=== PATIENT | male | born 1940 | race Native Hawaiian/Other Pacific Islander ===

== ENCOUNTER 2016-12-06 21:13 | Emergency (ER) | payer MEDICARE, MEDICAID ==
[2016-12-06 21:13] VITALS: PULSE 80
[2016-12-06 21:41] VITALS: BMI 26.4
[2016-12-06 21:46] VITALS: TEMP 98.3
[2016-12-06 23:21] LABS: BASO % 0.5 % (0.0-2.0); EOS # 0.1 K/uL (0.0-0.7); EOS % 1.2 % (0.0-4.0); HEMATOCRIT 35.1 % (35.0-51.0); LYMPH # 0.8 K/uL (1.0-4.3); LYMPH % 18.9 % (20.0-40.0); MEAN CELL VOLUME 86.6 fL (80.0-94.0); MEAN CORPUSCULAR HEMOGLOBIN 28.8 pg (27.0-31.0); MEAN CORPUSCULAR HGB CONC 33.3 g/dL (33.0-37.0); MEAN PLATELET VOLUME 9.4 fL (7.2-11.7); MONO # 0.2 K/uL (0.0-0.8); MONO % 4.1 % (0.0-10.0); RED CELL DISTRIBUTION WIDTH 15.1 % (11.5-14.5); WHITE BLOOD COUNT 4.4 K/uL (4.8-10.8)
[2016-12-06 23:25] LABS: CHLORIDE 103 mmol/L (98-107); INR 1.3; POTASSIUM 3.8 mmol/L (3.6-5.2); SODIUM 139 mmol/L (132-148)
[2016-12-06 23:27] LABS: ALB/GLOB RATIO 1.3 (1.0-2.1); AST/SGOT 23 U/L (17-59); BILIRUBIN,TOTAL 0.7 mg/dL (0.2-1.3); BLOOD UREA NITROGEN 17 mg/dL (9-20); CARBON DIOXIDE 24 mmol/L (22-30); CHOLESTEROL 95 mg/dL (0-199); GFR AFRICAN-AMERICAN > 60
[2016-12-06 23:28] LABS: ALKALINE PHOSPHATASE 67 U/L (38-126); ALT/SGPT 32 U/L (21-72); CALCIUM 8.6 mg/dl (8.6-10.4); GLUCOSE,RANDOM 100 mg/dL (75-110)
--- NOTE | 2016-12-06 23:45 | C.PDOC ---
Time Seen by Provider: 12/06/16 22:14 Chief Complaint (Nursing): High Blood Pressure Past Medical History Vital Signs: Last Vital Signs Temp 98.3 F 12/07/16 00:03 Pulse 74 12/07/16 00:03 Resp 16 12/07/16 00:03 BP 162/99 H 12/07/16 00:03 Pulse Ox 98 12/07/16 00:03 - Medical History PMH: Anemia, Arthritis, Atrial Fibrillation, Diabetes, Gastritis, HTN, Hypercholesterolemia, Hyperthyroidism Denies: Chronic Kidney Disease - [facility] Procedures EXCISION OF ESOPHAGUS, ENDO, DIAGN (08/11/16) EXCISION OF MIDDLE ESOPHAGUS, ENDO, DIAGN (11/06/15) EXCISION OF STOMACH, ENDO, DIAGN (11/06/15) EXCISION OF UPPER ESOPHAGUS, ENDO, DIAGN (11/06/15) OTHER ENDOSCOPY OF SM INTEST (12/14/14) Family History: States: Unknown Family Hx - Social History Hx Tobacco Use: No Hx Alcohol Use: No Hx Substance Use: No - Immunization History Hx Tetanus Toxoid Vaccination: No Hx Influenza Vaccination: Yes (2015) Hx Pneumococcal Vaccination: No ED Course And Treatment - Laboratory Results Result Diagrams: 12/06/16 23:14 12/06/16 23:14 O2 Sat by Pulse Oximetry: 100 Disposition - Disposition Referrals: Samia Elizabeth MD [Staff Provider] - Disposition: HOME/ ROUTINE Condition: GOOD Additional Instructions: ADD Vasotec 20 mg daily to his daily medication regimen (take in AM) Follow-up with Dr. Bedoya for BP check and Neuro referral Prescriptions: Enalapril Maleate [Vasotec] 20 mg PO DAILY #30 tab Instructions: Ischemic Stroke (DC), Hypertension (ED) - Clinical Impression Clinical Impression: CVA (cerebral vascular accident), Hypertension
--- NOTE | 2016-12-06 23:51 | C.PDOC ---
History Of Present Illness A 76 year old male was brought in by daughter after returning from the [facility] 2 days ago. Daughter reports patient had a CVA in the [facility] 1 month ago in the left middle cerebral territory which has made him aphasic with mild right sided facial drooping. Daughter wants Patient to be evaluated in the emergency room. Daughter denies any headaches, dizziness, numbness, weakness, fever, chills, nausea, vomiting, diarrhea, or any other complaints. Time Seen by Provider: 12/06/16 22:14 Chief Complaint (Nursing): High Blood Pressure History Per: Patient, Family (Daughter) History/Exam Limitations: no limitations Onset/Duration Of Symptoms: Other (1 month) Current Symptoms Are (Timing): Still Present Associated Symptoms: denies: Dizziness, Headache Severity: Mild Exacerbating Factor(s): Pos: None Recent travel outside of the [place]: Yes ([facility] 1 month ago.) Past Medical History Reviewed: Historical Data, Nursing Documentation, Vital Signs Vital Signs: Last Vital Signs Temp 98.3 F 12/07/16 00:03 Pulse 74 12/07/16 00:03 Resp 16 12/07/16 00:03 BP 162/99 H 12/07/16 00:03 Pulse Ox 98 12/07/16 00:03 - Medical History PMH: Anemia, Arthritis, Atrial Fibrillation, Diabetes, Gastritis, HTN, Hypercholesterolemia, Hyperthyroidism Denies: Chronic Kidney Disease - [facility] Procedures EXCISION OF ESOPHAGUS, ENDO, DIAGN (08/11/16) EXCISION OF MIDDLE ESOPHAGUS, ENDO, DIAGN (11/06/15) EXCISION OF STOMACH, ENDO, DIAGN (11/06/15) EXCISION OF UPPER ESOPHAGUS, ENDO, DIAGN (11/06/15) OTHER ENDOSCOPY OF SM INTEST (12/14/14) Family History: States: Unknown Family Hx - Social History Hx Tobacco Use: No Hx Alcohol Use: No Hx Substance Use: No - Immunization History Hx Tetanus Toxoid Vaccination: No Hx Influenza Vaccination: Yes (2015) Hx Pneumococcal Vaccination: No Review Of Systems Except As Marked, All Systems Reviewed And Found Negative. Constitutional: Negative for: Fever, Chills Gastrointestinal: Negative for: Nausea, Vomiting, Diarrhea Neurological: Positive for: Other (Mild right sided facial droop. CVA 1 month ago. Aphasic.). Negative for: Weakness, Numbness, Headache, Dizziness Physical Exam - Physical Exam Appears: Non-toxic Skin: Normal Color, Warm, Dry Head: Atraumatic, Normacephalic Eye(s): bilateral: Normal Inspection, PERRL, EOMI Oral Mucosa: Moist Neck: Normal ROM, Supple Cardiovascular: Other (A-fib. Rate 76.) Respiratory: Normal Breath Sounds, No Rales, No Rhonchi, No Wheezing Gastrointestinal/Abdominal: Soft, No Tenderness, No Guarding, No Rebound Extremity: Normal ROM, No Tenderness Neurological/Psych: Oriented x3, Normal Speech, Normal Cognition, Other (Mild right sided facial drooping. ) ED Course And Treatment - Laboratory Results Result Diagrams: 12/06/16 23:14 12/06/16 23:14 ECG: Interpreted By [place] ECG Rhythm: Atrial Fibrillation ECG Interpretation: No Changes From Prior, Abnormal Rate From EC O2 Sat by Pulse Oximetry: 100 Pulse Ox Interpretation: Normal - Radiology CXR: Interpreted by Me CXR Interpretation: Yes: No Acute Disease - CT Scan/US CT Head Other Rad Studies (CT/US): Read By Radiologist, Radiology Report Reviewed CT/US Interpretation: IMPRESSION: Findings consistent with chronic or subacute left MCA territory infarction. 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 On appropriate anticoagulation Head CT no new changes, sub-acute L MCA CVA Vasotec 20 mg PO started pt to f/u w Dr. Bedoya tomorrow and seek Neuro referral. Disposition Doctor Will See Patient In The: Office Counseled Patient/Family Regarding: Studies Performed, Diagnosis - Disposition Referrals: Samia Elizabeth MD [Staff Provider] - Disposition: HOME/ ROUTINE Disposition Time: 23:53 Condition: GOOD Additional Instructions: ADD Vasotec 20 mg daily to his daily medication regimen (take in AM) Follow-up with Dr. Bedoya for BP check and Neuro referral Prescriptions: Enalapril Maleate [Vasotec] 20 mg PO DAILY #30 tab Instructions: Ischemic Stroke (DC), Hypertension (ED) - Clinical Impression Clinical Impression: CVA (cerebral vascular accident), Hypertension - Scribe Statement The provider has reviewed the documentation as recorded by the Aleja Lainez Provider Scribe Attestation: All medical record entries made by the Scribe were at my direction and personally dictated by me. I have reviewed the chart and agree that the record accurately reflects my personal performance of the history, physical exam, medical decision making, and the department course for this patient. I have also personally directed, reviewed, and agree with the discharge instructions and disposition.
[2016-12-07 00:04] VITALS: BP 162/99; PULSE 74; RESP 16
[2016-12-07 00:50] VITALS: O2SAT 100
--- NOTE | 2016-12-07 09:20 | RAD ---
HISTORY: CVA COMPARISON: Chest x-ray performed 08/11/16 TECHNIQUE: Chest, one view. FINDINGS: LUNGS: Biapical scarring or atelectasis. Trace left pleural effusion. Left basilar atelectasis or infiltrate. No definite pneumothorax. Please note that chest x-ray has limited sensitivity for the detection of pulmonary masses. CARDIOVASCULAR: Cardiomegaly. Dense atherosclerotic calcifications of the aorta. OSSEOUS STRUCTURES: Osseous demineralization. Degenerative changes of the spine and shoulders. Acromioclavicular arthropathy. VISUALIZED UPPER ABDOMEN: Unremarkable. OTHER FINDINGS: None. IMPRESSION: Biapical scarring or atelectasis. Trace left pleural effusion. Left basilar atelectasis or infiltrate. Cardiomegaly. Dense atherosclerotic calcifications of the aorta.
--- NOTE | 2016-12-07 10:57 | CT ---
PROCEDURE: CT HEAD WITHOUT CONTRAST. HISTORY: L MCA infarct 1 mo ago, now JONES/HTN COMPARISON: Noncontrast head CT performed 10/03/12 TECHNIQUE: Axial computed tomography images were obtained through the head/brain without intravenous contrast. Radiation dose: Total exam DLP = 935.14 mGy-cm. This CT exam was performed using one or more of the following dose reduction techniques: Automated exposure control, adjustment of the mA and/or kV according to patient size, and/or use of iterative reconstruction technique. FINDINGS: Streak artifact limits evaluation of the skullbase. HEMORRHAGE: No intracranial hemorrhage. BRAIN: Diffuse atrophy with prominence of the ventricles and sulci noted. No mass effect or edema. Intracranial atherosclerotic calcifications. Bilateral basal ganglia calcifications. Encephalomalacia identified within the left MCA territory compatible with prior infarction. Scattered periventricular and subcortical white matter hypodensities, which are nonspecific, but often seen with chronic microvascular ischemic disease. Please note that MRI with diffusion imaging is more sensitive in the detection of acute ischemic event. VENTRICLES: No hydrocephalus. CALVARIUM: Unremarkable. PARANASAL SINUSES: Unremarkable as visualized. No significant inflammatory changes. MASTOID AIR CELLS: Unremarkable as visualized. No inflammatory changes. OTHER FINDINGS: Bilateral hearing aid devices. IMPRESSION: Encephalomalacia within the left MCA distribution compatible with prior infarction. Additional scattered nonspecific white matter changes are evident. Preliminary impression was provided by virtual radiologic.
--- NOTE | 2016-12-13 14:11 | CARD ---
APPROVED REPORT EKG Measurement Heart [id number] <Conclusion> Atrial fibrillation Possible Anterior infarct, age undetermined Abnormal ECG
== END 2016-12-07 00:05 | disposition home or self-care (01) ==
LOC: C.ER 21:13
DX: I10 Essential (primary) hypertension (principal); Z86.73 Personal history of transient ischemic attack (TIA), and cerebral infarction without residual deficits; I48.91 Unspecified atrial fibrillation; E11.9 Type 2 diabetes mellitus without complications; E78.00 Pure hypercholesterolemia, unspecified; D64.9 Anemia, unspecified; Z87.891 Personal history of nicotine dependence

== ENCOUNTER 2016-12-20 16:13 | Inpatient (IN) | payer MEDICARE, MEDICAID ==
[2016-12-20 16:13] VITALS: PULSE 80; BMI 26.4
[2016-12-20 16:36] VITALS: RESP 20
[2016-12-20 18:21] LABS: BASO % 0.4 % (0.0-2.0); EOS # 0.1 K/uL (0.0-0.7); EOS % 1.7 % (0.0-4.0); HEMATOCRIT 35.2 % (35.0-51.0); LYMPH # 1.3 K/uL (1.0-4.3); MEAN CELL VOLUME 87.6 fL (80.0-94.0); MEAN CORPUSCULAR HEMOGLOBIN 29.2 pg (27.0-31.0); MEAN CORPUSCULAR HGB CONC 33.3 g/dL (33.0-37.0); MONO # 0.2 K/uL (0.0-0.8); MONO % 5.2 % (0.0-10.0); NRBC % 0.2 % (0.0-2.0); RED CELL DISTRIBUTION WIDTH 15.9 % (11.5-14.5); WHITE BLOOD COUNT 4.5 K/uL (4.8-10.8)
[2016-12-20] MEDS ORDERED: cefTRIAXone IV 1 gm in Dextros 50 ML IV ONE (18:22)
[2016-12-20] MEDS ORDERED: Azithromycin 500 MG in Sodium Chloride 0.9% 250 ML IV STA (18:22)
--- NOTE | 2016-12-20 18:22 | RAD ---
PROCEDURE: CHEST RADIOGRAPH, 1 VIEW portable study 18:09. HISTORY: SOB COMPARISON: 12/06/2016. FINDINGS: LUNGS: Clear. PLEURA: No pneumothorax or pleural fluid seen. CARDIOVASCULAR: No radiographic findings to suggest acute or significant cardiovascular disease. OSSEOUS STRUCTURES: No significant abnormalities. VISUALIZED UPPER ABDOMEN: Normal. OTHER FINDINGS: None. IMPRESSION: No active disease. No acute/significant interval changes.
[2016-12-20 18:30] LABS: CHLORIDE 102 mmol/L (98-107); POTASSIUM 3.7 mmol/L (3.6-5.2); SODIUM 138 mmol/L (132-148)
[2016-12-20 18:33] LABS: ALB/GLOB RATIO 1.3 (1.0-2.1); ALKALINE PHOSPHATASE 58 U/L (38-126); ALT/SGPT 28 U/L (21-72); AST/SGOT 22 U/L (17-59); BILIRUBIN,TOTAL 0.8 mg/dL (0.2-1.3); BLOOD UREA NITROGEN 25 mg/dL (9-20); CALCIUM 8.5 mg/dl (8.6-10.4); CARBON DIOXIDE 25 mmol/L (22-30); GFR AFRICAN-AMERICAN > 60; GLUCOSE,RANDOM 96 mg/dL (75-110); TOTAL PROTEIN 7.1 g/dL (6.3-8.3)
[2016-12-20 18:38] LABS: INR 1.2
[2016-12-20] MEDS ORDERED: cefTRIAXone IV 1 gm in Dextros 50 ML IVPB ONE (18:46)
--- NOTE | 2016-12-20 19:10 | C.PDOC ---
History Of Present Illness 76 y/o male presents to ED with complaint of right sided chest pain and right arm pain onset 1 hour prior to arrival. Patient states pain is not digitally or positionally reproducible. Otherwise, denies fever, chills, rash, headache, SOB , dyspnea, diaphoresis, nausea, vomiting, or other associated symptoms. Time Seen by Provider: 12/20/16 17:30 Chief Complaint (Nursing): Chest Pain History Per: Patient History/Exam Limitations: no limitations Onset/Duration Of Symptoms: Hrs Current Symptoms Are (Timing): Still Present Associated Symptoms: denies: Nausea, Dyspnea, Diaphoresis Recent travel outside of the [place]: No Past Medical History Reviewed: Historical Data, Nursing Documentation, Vital Signs Vital Signs: Last Vital Signs Temp 98.2 F 12/20/16 16:33 Pulse 79 12/20/16 16:33 Resp 20 12/20/16 16:33 BP 134/81 12/20/16 16:33 Pulse Ox 99 12/20/16 19:26 - Medical History PMH: Anemia, Arthritis, Atrial Fibrillation, Diabetes, Gastritis, HTN, Hypercholesterolemia, Hyperthyroidism - [facility] Procedures EXCISION OF ESOPHAGUS, ENDO, DIAGN (08/11/16) EXCISION OF MIDDLE ESOPHAGUS, ENDO, DIAGN (11/06/15) EXCISION OF STOMACH, ENDO, DIAGN (11/06/15) EXCISION OF UPPER ESOPHAGUS, ENDO, DIAGN (11/06/15) OTHER ENDOSCOPY OF SM INTEST (12/14/14) Family History: States: Unknown Family Hx - Social History Hx Tobacco Use: No Hx Alcohol Use: No Hx Substance Use: No - Immunization History Hx Tetanus Toxoid Vaccination: No Hx Influenza Vaccination: Yes (2015) Hx Pneumococcal Vaccination: No Review Of Systems Except As Marked, All Systems Reviewed And Found Negative. Constitutional: Negative for: Fever, Chills Cardiovascular: Positive for: Chest Pain. Negative for: Palpitations Respiratory: Negative for: Cough, Shortness of Breath, Wheezing Gastrointestinal: Negative for: Nausea, Vomiting Musculoskeletal: Positive for: Arm Pain Skin: Negative for: Rash Neurological: Negative for: Headache, Dizziness Physical Exam - Physical Exam Appears: Non-toxic, No Acute Distress, Other (hard of hearing) Skin: Warm, Dry Head: Atraumatic, Normacephalic Chest: Symmetrical, No Tenderness, Other (no rash ) Cardiovascular: Rhythm Regular Respiratory: Normal Breath Sounds, No Rales, No Rhonchi, No Wheezing Gastrointestinal/Abdominal: Soft, No Tenderness Back: Normal Inspection Extremity: Normal ROM, No Tenderness, Capillary Refill (< @ sec. ), No Deformity Extremity: Bilateral: Normal Color And Temperature Pulses: Left Radial: Normal, Right Radial: Normal Neurological/Psych: Oriented x3, Normal Speech, Normal Cognition ED Course And Treatment - Laboratory Results Result Diagrams: 12/20/16 18:10 12/20/16 18:10 Lab Interpretation: Normal ECG: Interpreted By Me ECG Rhythm: Atrial Fibrillation ECG Interpretation: Normal Rate From EC O2 Sat by Pulse Oximetry: 99 (RA) Pulse Ox Interpretation: Normal - Radiology CXR: Interpreted by Me CXR Interpretation: Yes: Infiltrates (+RLL) Progress Note: EKG, CXR, bloodwork ordered. Treated with IV Rocephin/zithromax. Reevaluation Time: 19:25 Reassessment Condition: Improved - Physician Consult Information Outcome Of Conversation: 1914: d/w Dr. Darlene Bedoya-kiko to tele obs. Medical Decision Making Medical Decision Making: AF stable RLL PNA on CXR but normal labs- rocephin/azithro CP: AF, neg trop, follow trop x 2 Disposition Doctor Will See Patient In The: Hospital Counseled Patient/Family Regarding: Studies Performed, Diagnosis - Disposition Disposition: HOSPITALIZED Disposition Time: 19:26 Condition: GOOD - POA Core Measure Indicators: Pneumonia - Clinical Impression Clinical Impression: Pneumonia, Chest discomfort - Scribe Statement The provider has reviewed the documentation as recorded by the Aleja Del Valle Provider Scribe Attestation: All medical record entries made by the Aleja were at my direction and personally dictated by me. I have reviewed the chart and agree that the record accurately reflects my personal performance of the history, physical exam, medical decision making, and the department course for this patient. I have also personally directed, reviewed, and agree with the discharge instructions and disposition.
[2016-12-20] MEDS ORDERED: Azithromycin 500mg/250ML NS 500 MG/250 ML BAG IVPB ONE (19:32)
[2016-12-20] MEDS ORDERED: Sodium Chloride 0.45% 1,000 ML IV SCH (20:00)
[2016-12-21 07:25] LABS: CHLORIDE 103 mmol/L (98-107); SODIUM 138 mmol/L (132-148)
[2016-12-21 07:28] LABS: BLOOD UREA NITROGEN 20 mg/dL (9-20); CARBON DIOXIDE 23 mmol/L (22-30); GFR AFRICAN-AMERICAN > 60; GLUCOSE,RANDOM 79 mg/dL (75-110)
[2016-12-21 07:29] LABS: CALCIUM 8.5 mg/dl (8.6-10.4)
[2016-12-21 07:46] LABS: POTASSIUM 4.3 mmol/L (3.6-5.2)
[2016-12-21] MEDS ORDERED: methIMAzole 5 MG TAB PO SCH (10:00)
--- NOTE | 2016-12-21 14:10 | CP.PCM.HP ---
History of Present Illness - History of Present Illness History of Present Illness: This is a 76 y/o male with known history of hypertension, diabetes, atrial fibrillation, hyperthyroidism who had a stroke about a month ago sustaining R hemiparesis and expressive aphasia. According to the family, patient complained of sharp intermittent pain over the r side of the chest. There was no radiation , no diaphoresis, no shortness of breath. He denies any nausea or vomiting, palpitations or lightheadedness or syncope. In the ER, he reportedly had a small RLL infiltrate on the CXR and hence was given antibiotic and subsequently admitted. Patient denies any fever, cold or cough. Present on Admission - Present on Admission Any Indicators Present on Admission: No Review of Systems - Review of Systems All systems: reviewed and no additional remarkable complaints except - Constitutional Constitutional: As Per HPI - EENT Eyes: As Per HPI - Cardiovascular Cardiovascular: Chest Pain, Irregular Heart Rhythm - Respiratory Respiratory: As Per HPI - Gastrointestinal Gastrointestinal: As Per HPI - Genitourinary Genitourinary: As Per HPI - Integumentary Integumentary: As Per HPI - Neurological Neurological: Abnormal Gait, Abnormal Speech, Sensory Deficit, Tremor, Weakness - Psychiatric Psychiatric: Anxiety Past Patient History - Infectious Disease Hx of Infectious Diseases: None - Past Medical History & Family History Past Medical History?: Yes - Past Social History Smoking Status: Former Smoker Alcohol: Occasional Drugs: Denies Home Situation {Lives}: With Family - CARDIAC Hx Cardiac Disorders: Yes Hx Atrial Fibrillation: Yes Hx Hypercholesterolemia: Yes Hx Hypertension: Yes - PULMONARY Hx Respiratory Disorders: No Hx Respiratory Tract Infection: Yes - NEUROLOGICAL Hx Neurological Disorder: No HX Cerebrovascular Accident: Yes (october 2016) Other/Comment: rt sided weakness from cva - HEENT Hx HEENT Problems: Yes Hx Deafness: Yes (+ hearing loss) Other/Comment: wears glasses - RENAL Hx Chronic Kidney Disease: No - ENDOCRINE/METABOLIC Hx Endocrine Disorders: Yes Hx Hyperthyroidism: Yes - HEMATOLOGICAL/ONCOLOGICAL Hx Blood Disorders: Yes Hx Anemia: Yes - INTEGUMENTARY Hx Dermatological Problems: No - MUSCULOSKELETAL/RHEUMATOLOGICAL Hx Musculoskeletal Disorders: Yes Hx Arthritis: Yes Hx Falls: No - GASTROINTESTINAL Hx Gastrointestinal Disorders: Yes Hx Gastritis: Yes - GENITOURINARY/GYNECOLOGICAL Hx Genitourinary Disorders: Yes Hx Prostate Problems: Yes - PSYCHIATRIC Hx Psychophysiologic Disorder: No Hx Substance Use: No - SURGICAL HISTORY Hx Surgeries: Yes Other/Comment: endoscopy done 10/26/14 in [facility] [place] - ANESTHESIA Hx Anesthesia: Yes Hx Anesthesia Reactions: No Hx Malignant Hyperthermia: No Meds Allergies/Adverse Reactions: Allergies Allergy/AdvReac Type Severity Reaction Status Date / Time aspirin Allergy Verified 12/06/16 21:37 Physical Exam - Constitutional Appears: No Acute Distress - Head Exam Head Exam: NORMAL INSPECTION - Eye Exam Eye Exam: Normal appearance - Neck Exam Neck exam: Positive for: Full Rom, Normal Inspection - Respiratory Exam Respiratory Exam: Clear to Auscultation Bilateral, NORMAL BREATHING PATTERN - Cardiovascular Exam Cardiovascular Exam: Irregular Rhythm, +S1, +S2 - GI/Abdominal Exam GI & Abdominal Exam: Normal Bowel Sounds, Soft - Rectal Exam Rectal Exam: Deferred - Neurological Exam Neurological exam: Alert, Oriented x3 - Expanded Neurological Exam Expanded Neurological exam: Expressive Aphasia Patient oriented to: person, place, time Speech: Expressive Aphasia, Garbled Speech Cranial nerves: EOM's Intact: Normal, Facial [place] w/Forehead Movement: Normal Neuro motor strength exam: Left Upper Extremity: 5, Right Upper Extremity: 4, Left Lower Extremity: 5, Right Lower Extremity: 3 Coma Scale Motor Response: OBEYS COMMANDS - Skin Skin Exam: Dry, Intact, Normal Color, Warm Results - Vital Signs Recent Vital Signs: Last Vital Signs Temp 98.8 F 12/21/16 07:00 Pulse 80 12/21/16 07:00 Resp 20 12/21/16 07:00 BP 157/90 H 12/21/16 07:00 Pulse Ox 99 12/21/16 07:00 - Labs Result Diagrams: 12/20/16 18:10 12/21/16 07:01 Labs: Laboratory Results - last 24 hr 12/20/16 12/21/16 12/21/16 21:14 07:01 11:58 Sodium 138 Potassium 4.3 Chloride 103 Carbon Dioxide 23 Anion Gap 16 BUN 20 Creatinine 0.9 Est GFR ( Amer) > 60 Est GFR (Non-Af Amer) > 60 Random Glucose 79 Calcium 8.5 L Total Creatine Kinase 52 L 73 64 CK-MB (Mass) 0.32 0.29 0.24 Troponin I < 0.0120 Troponin I, Quant < 0.0120 < 0.0120 Assessment & Plan - Assessment and Plan (Free Text) Assessment: 1) Chest Pain- Nonanginal Chest Pain- no acute change on EKG and cardiac enzymes were all normal x4 2) Dehydration- BUN is elkevated with normal creatinine 3) Hypertension- controlled on current medications 3) Atrial fibrillation with moderate ventricular response- on Eliquis 4) Hyperthyrodism- on Methimazole and clinically euthyrid on last thyroid testing 5) S/P recent stroke with R Hemiparesis and expressive aphasia- undergoing outpatient Physical, occupational and speech therapy. 6) ?RLL infiltrate- doubtful - CXR does not show any infiltrate on official interpretation and clinically, the patient does not have pneumonia 7) Diabetes Mellitus- controlled on diet Decision To Admit - Pt Status Changed To: Hospital Disposition Of: Observation - . Bed Request Type: Telemetry Admitting Physician: Samia Elizabeth
--- NOTE | 2016-12-21 14:42 | CP.PCM.DIS ---
Provider - Provider Date of Admission: 12/20/16 20:43 Attending physician: Samia Elizabeth MD Primary care physician: Anisa Elizabeth Time Spent in preparation of Discharge (in minutes): 45 Hospital Course - Lab Results Lab Results: Most Recent Lab Values WBC 4.5 K/uL (4.8-10.8) L 12/20/16 18:10 RBC 4.02 Mil/uL (4.40-5.90) L 12/20/16 18:10 Hgb 11.7 g/dL (12.0-18.0) L 12/20/16 18:10 Hct 35.2 % (35.0-51.0) 12/20/16 18:10 MCV 87.6 fL (80.0-94.0) 12/20/16 18:10 MCH 29.2 pg (27.0-31.0) 12/20/16 18:10 MCHC 33.3 g/dL (33.0-37.0) 12/20/16 18:10 RDW 15.9 % (11.5-14.5) H 12/20/16 18:10 Plt Count 129 K/uL (130-400) L D 12/20/16 18:10 MPV 10.0 fL (7.2-11.7) 12/20/16 18:10 Neut % (Auto) 64.7 % (50.0-75.0) 12/20/16 18:10 Lymph % (Auto) 28.0 % (20.0-40.0) 12/20/16 18:10 [place] % (Auto) 5.2 % (0.0-10.0) 12/20/16 18:10 Eos % (Auto) 1.7 % (0.0-4.0) 12/20/16 18:10 Baso % (Auto) 0.4 % (0.0-2.0) 12/20/16 18:10 Neut # 2.9 K/uL (1.8-7.0) 12/20/16 18:10 Lymph # 1.3 K/uL (1.0-4.3) 12/20/16 18:10 [place] # 0.2 K/uL (0.0-0.8) 12/20/16 18:10 Eos # 0.1 K/uL (0.0-0.7) 12/20/16 18:10 Baso # 0.0 K/uL (0.0-0.2) 12/20/16 18:10 Differential Comment 12/20/16 18:10 PT 13.8 SECONDS (9.7-12.2) H 12/20/16 18:10 INR 1.2 12/20/16 18:10 APTT 35 SECONDS (21-34) H 12/20/16 18:10 Sodium 138 mmol/L (132-148) 12/21/16 07:01 Potassium 4.3 mmol/L (3.6-5.2) 12/21/16 07:01 Chloride 103 mmol/L (98-107) 12/21/16 07:01 Carbon Dioxide 23 mmol/L (22-30) 12/21/16 07:01 Anion Gap 16 (10-20) 12/21/16 07:01 BUN 20 mg/dL (9-20) 12/21/16 07:01 Creatinine 0.9 MG/DL (0.8-1.5) 12/21/16 07:01 Est GFR ( Amer) > 60 12/21/16 07:01 Est GFR (Non-Af Amer) > 60 12/21/16 07:01 Random Glucose 79 mg/dL (75-110) 12/21/16 07:01 Calcium 8.5 mg/dl (8.6-10.4) L 12/21/16 07:01 Total Bilirubin 0.8 mg/dL (0.2-1.3) 12/20/16 18:10 AST 22 U/L (17-59) 12/20/16 18:10 ALT 28 U/L (21-72) 12/20/16 18:10 Alkaline Phosphatase 58 U/L (38-126) 12/20/16 18:10 Total Creatine Kinase 64 U/L (55-170) 12/21/16 11:58 CK-MB (Mass) 0.24 ng/mL (0.0-3.38) 12/21/16 11:58 Troponin I < 0.0120 ng/mL (0.00-0.120) 12/20/16 21:14 Troponin I, Quant < 0.0120 ng/mL (0.00-0.120) 12/21/16 11:58 NT-Pro-B Natriuret Pep 651 pg/mL (0-900) 12/20/16 18:10 Total Protein 7.1 g/dL (6.3-8.3) 12/20/16 18:10 Albumin 3.9 g/dL (3.5-5.0) 12/20/16 18:10 Globulin 3.1 gm/dL (2.2-3.9) 12/20/16 18:10 Albumin/Globulin Ratio 1.3 (1.0-2.1) 12/20/16 18:10 - Hospital Course Hospital Course: This is a 76 y/o male hypertensive, diabetic, atrial fib with history of recent stroke who was admitted through the ER because of chest pain. He also reportedly had a RLL infiltrate which was not really reported on the official interpretation of the CXR. Patient had serial cardiac enzymes which were all wnl. Patient is chest pain-free since admission. VS are stable. There are no clinical signs of respiratory infection and denies any cold or cough at this time. His initial BUn was high and hence he received infusion of fluid intravenously and repeat BUn went down back to normal. He is essentially asymptomatic at this time from the cardiac standpoint and hence he will be discharged and followed up in the office in 1-2 weeks. FINAL DIAGNOSES 1) Chest Pain- Nonanginal Chest Pain- no acute change on EKG and cardiac enzymes were all normal x4- stable 2) Dehydration-responded well to fluid infusion and repeat BUN is back to normal 3) Hypertension- controlled on current medications- stable 3) Atrial fibrillation with moderate ventricular response- on Eliquis 4) Hyperthyrodism- on Methimazole and clinically euthyroid on last thyroid testing 5) S/P recent stroke with R Hemiparesis and expressive aphasia- undergoing outpatient Physical, occupational and speech therapy. 6) ?RLL infiltrate- doubtful - CXR does not show any infiltrate on official interpretation and clinically, the patient does not have pneumonia 7) Diabetes Mellitus- controlled on diet Discharge Exam - Head Exam Head Exam: NORMAL INSPECTION - Eye Exam Eye Exam: Normal appearance - Respiratory Exam Respiratory Exam: Clear to PA & Lateral, NORMAL BREATHING PATTERN - Cardiovascular Exam Cardiovascular Exam: Irregular Rhythm, +S1, +S2 - GI/Abdominal Exam GI & Abdominal Exam: Normal Bowel Sounds, Soft - Rectal Exam Rectal Exam: Deferred - Extremities Exam Extremities exam: normal inspection - Neurological Exam Neurological exam: Abnormal Gait, Alert, Oriented x3 Discharge Plan - Follow Up Plan Condition: FAIR Disposition: HOME/ ROUTINE
[2016-12-21 16:20] VITALS: BP 96/56; TEMP 98.2
[2016-12-21 17:31] VITALS: PULSE 72; O2SAT 99
[2016-12-21] MEDS ORDERED: Azithromycin 500 MG in Sodium Chloride 0.9% 250 ML IVPB SCH (22:00)
[2016-12-22] MEDS ORDERED: Pneumococcal 23-Valent Vaccine IM ONE (10:00)
--- NOTE | 2016-12-25 09:03 | CARD ---
APPROVED REPORT EKG Measurement Heart [id number] <Conclusion> Atrial fibrillation Abnormal ECG
--- NOTE | 2016-12-27 15:30 | CARD ---
APPROVED REPORT EXAM: Two-dimensional and M-mode echocardiogram with Doppler and color Doppler. Other Information Quality : GoodRhythm : NSR INDICATION Atrial Fibrillation Chest Pain S/P STROKE RISK FACTORS Hypertension M-Mode DIMENSIONS RVDd1.00 (2.1-3.2cm)Left Atrium (MM)5.58 (2.5-4.0cm) IVSd0.81 (0.7-1.1cm)Aortic Root3.34 (2.2-3.7cm) LVDd5.72 (4.0-5.6cm)Aortic Cusp Exc.1.77 (1.5-2.0cm) PWd1.03 (0.7-1.1cm)FS (%) 30 % LVDs4.02 (2.0-3.8cm)LVEF (%)56 (>50%) Mitral Valve MV E Mvfrtoaq476.0cm/sMV A Xozlvfxc40.6cm/sE/A ratio1.8 TDI E/Lateral E'0.0E/Medial E'0.0 Tricuspid Valve TR Peak Avvgujua817rs/sTR Peak Gr.84elMpBNMW40kzRv LEFT VENTRICLE The left ventricle is normal size. There is normal left ventricular wall thickness. EF = 60-65% There is normal LV segmental wall motion. Transmitral Doppler flow pattern is Grade II-pseudonormal filling dynamics. RIGHT VENTRICLE The right ventricle is normal size. There is normal right ventricular wall thickness. The right ventricular systolic function is normal. ATRIA The left atrium is moderately dilated. The right atrium is mildly dilated. The interatrial septum is intact with no evidence for an atrial septal defect. AORTIC VALVE THE AV IS CALCIFIED AND PARTIALLY RESTRICTED There is mild aortic regurgitation. AV STENOSIS CANNOT BE EVALUATED LVOT AND AV GRADIENTS NOT MEASURED MITRAL VALVE MILD MAC WITH RESTRICTED POST MV LEAFLET There is no evidence of mitral valve prolapse. There is no mitral valve stenosis. Mitral regurgitation is mild. TRICUSPID VALVE The tricuspid valve is normal in structure. There is mild tricuspid regurgitation. PAP 35-45 There is no tricuspid valve prolapse or vegetation. There is no tricuspid valve stenosis. PULMONIC VALVE NOT WELL VISUALIZED GREAT VESSELS The aortic root is normal in size. The ascending aorta is normal in size. The IVC is NORMAL IN SIZE The IVC collapses <50% with inspiration. <Conclusion> EF = 60-65% Transmitral Doppler flow pattern is Grade II-pseudonormal filling dynamics. The left atrium is moderately dilated. The right atrium is mildly dilated. THE AV IS CALCIFIED AND PARTIALLY RESTRICTED AV STENOSIS CANNOT BE EVALUATED LVOT AND AV GRADIENTS NOT MEASURED MILD MAC WITH RESTRICTED POST MV LEAFLET Mitral regurgitation is mild. There is mild tricuspid regurgitation. PAP 35-45 The IVC collapses <50% with inspiration.
== END 2016-12-21 20:18 | disposition home or self-care (01) | DRG 313 ==
LOC: C.ER 16:13 → C.9E 20:43 → C.6T 21:45
PROVIDERS: ADMIT Internal Medicine Cardiovascular Disease; ATTEND Internal Medicine Cardiovascular Disease
DX: R07.89 Other chest pain (principal); E86.0 Dehydration; I69.351 Hemiplegia and hemiparesis following cerebral infarction affecting right dominant side; E11.9 Type 2 diabetes mellitus without complications; I10 Essential (primary) hypertension; I69.320 Aphasia following cerebral infarction; I48.91 Unspecified atrial fibrillation; E05.90 Thyrotoxicosis, unspecified without thyrotoxic crisis or storm; R91.8 Other nonspecific abnormal finding of lung field

== ENCOUNTER 2016-12-27 13:27 | Emergency (ER) | payer MEDICARE, MEDICAID ==
[2016-12-27 13:28] VITALS: PULSE 80; BMI 26.4
[2016-12-27 14:25] LABS: RBC URINE 2 /hpf (0-3); URINE BILIRUBIN NEGATIVE (NEGATIVE); URINE BLOOD NEGATIVE (NEGATIVE); URINE COLOR Yellow (YELLOW); URINE GLUCOSE (UA) NORMAL (Normal); URINE KETONE NEGATIVE (NEGATIVE); URINE LEUKOCYTE ESTERASE TRACE Leu/uL (Negative); URINE PROTEIN NEGATIVE (NEGATIVE); URINE UROBILINOGEN NORMAL mg/dL (0.2-1.0); WBC URINE 4 /hpf (0-5)
[2016-12-27 14:38] LABS: BASO % 0.7 % (0.0-2.0); EOS # 0.1 K/uL (0.0-0.7); EOS % 1.7 % (0.0-4.0); HEMATOCRIT 34.7 % (35.0-51.0); LYMPH # 1.2 K/uL (1.0-4.3); LYMPH % 30.2 % (20.0-40.0); MEAN CELL VOLUME 87.6 fL (80.0-94.0); MEAN CORPUSCULAR HEMOGLOBIN 28.8 pg (27.0-31.0); MEAN CORPUSCULAR HGB CONC 32.9 g/dL (33.0-37.0); MEAN PLATELET VOLUME 9.2 fL (7.2-11.7); MONO # 0.2 K/uL (0.0-0.8); MONO % 5.5 % (0.0-10.0); NRBC % 0.1 % (0.0-2.0); RED CELL DISTRIBUTION WIDTH 15.9 % (11.5-14.5); WHITE BLOOD COUNT 3.8 K/uL (4.8-10.8)
[2016-12-27 14:50] LABS: CHLORIDE 99 mmol/L (98-107)
[2016-12-27 14:51] LABS: POTASSIUM 3.6 mmol/L (3.6-5.2); SODIUM 134 mmol/L (132-148)
[2016-12-27 14:53] LABS: ALB/GLOB RATIO 1.4 (1.0-2.1); ALKALINE PHOSPHATASE 67 U/L (38-126); AST/SGOT 22 U/L (17-59); BILIRUBIN,TOTAL 0.4 mg/dL (0.2-1.3); BLOOD UREA NITROGEN 21 mg/dL (9-20); CARBON DIOXIDE 25 mmol/L (22-30); GFR AFRICAN-AMERICAN > 60; GLUCOSE,RANDOM 88 mg/dL (75-110); TOTAL PROTEIN 7.1 g/dL (6.3-8.3)
[2016-12-27 14:54] LABS: ALT/SGPT 30 U/L (21-72); CALCIUM 8.4 mg/dl (8.6-10.4)
--- NOTE | 2016-12-27 15:07 | C.PDOC ---
History Of Present Illness 76 year old patient, with a past medical history of gastritis, diabetes, anemia , arthritis, a-fib, hypertension, hypercholesterolemia, and hyperthyroidism, presents to the ED complaining of urinary retention and abdominal pain since yesterday. Patient was sent here by Dr. Solis. Patient had a stroke in 2016. Patient has right side deficits which has been getting better with physical therapy. Patient has chronic BPH and is currently being treated. Patient also states he did not have a bowel movement for the past 5 days. Patient has been taking laxatives daily with no relief. Patient denies fever, chills, nausea, vomiting, or back pain. Time Seen by Provider: 12/27/16 14:00 Chief Complaint (Nursing): Male Genitourinary History Per: Patient, Family History/Exam Limitations: language barrier (family translated) Onset/Duration Of Symptoms: Days (1) Current Symptoms Are (Timing): Still Present Severity: Mild Pain Scale Rating Of: 3 Quality Of Discomfort: "Pain" Associated Symptoms: Constipation, Urinary Symptoms Alleviating Factors: None Recent travel outside of the [place]: No Past Medical History Reviewed: Historical Data, Nursing Documentation, Vital Signs Vital Signs: Last Vital Signs Temp 98.2 F 12/27/16 16:26 Pulse 66 12/27/16 16:26 Resp 18 12/27/16 16:26 BP 135/82 12/27/16 16:26 Pulse Ox 100 12/27/16 17:45 - Medical History PMH: Anemia, Arthritis, Atrial Fibrillation, Diabetes, Gastritis, HTN, Hypercholesterolemia, Hyperthyroidism - [facility] Procedures EXCISION OF ESOPHAGUS, ENDO, DIAGN (08/11/16) EXCISION OF MIDDLE ESOPHAGUS, ENDO, DIAGN (11/06/15) EXCISION OF STOMACH, ENDO, DIAGN (11/06/15) EXCISION OF UPPER ESOPHAGUS, ENDO, DIAGN (11/06/15) OTHER ENDOSCOPY OF SM INTEST (12/14/14) Family History: States: Unknown Family Hx - Social History Hx Tobacco Use: No Hx Alcohol Use: No Hx Substance Use: No - Immunization History Hx Tetanus Toxoid Vaccination: No Hx Influenza Vaccination: Yes (2015) Hx Pneumococcal Vaccination: No Review Of Systems Except As Marked, All Systems Reviewed And Found Negative. Constitutional: Negative for: Fever, Chills Gastrointestinal: Positive for: Abdominal Pain, Constipation. Negative for: Nausea, Vomiting Genitourinary: Positive for: Other (urinary and bowel retention) Musculoskeletal: Negative for: Back Pain Physical Exam - Physical Exam Appears: Non-toxic, No Acute Distress Skin: Warm, Dry Head: Atraumatic, Normacephalic Oral Mucosa: Moist Neck: Normal ROM, Supple Chest: Symmetrical Cardiovascular: Rhythm Regular Respiratory: Normal Breath Sounds, No Accessory Muscle Use, No Rales, No Rhonchi , No Wheezing Gastrointestinal/Abdominal: Soft, Tenderness (mild suprapubic), Distention, No Guarding, No Rebound Back: Normal Inspection, No CVA Tenderness Extremity: Normal ROM ED Course And Treatment - Laboratory Results Result Diagrams: 12/27/16 14:33 12/27/16 14:33 O2 Sat by Pulse Oximetry: 100 (room air) Pulse Ox Interpretation: Normal Progress Note: Plan: -Labs. -Fleet enema. -Peg electrolyte lavage. -Abdomen flat plate Medical Decision Making Medical Decision Making: patient with urinary retention secondary to constipation. Felling better after enema and golyghtly, will d/c to follow up with gu. Disposition Discussed With Dr.: Issa Prasad Doctor Will See Patient In The: Office Counseled Patient/Family Regarding: Studies Performed, Diagnosis, Need For Followup, Rx Given - Disposition Disposition: HOME/ ROUTINE Disposition Time: 18:13 Condition: STABLE Prescriptions: Docusate Sodium [Colace] 100 mg PO BID #20 capsule Psyllium Husk/Aspartame [Metamucil Fiber Singles Packet] 3.4 gm PO DAILY #1 powd.pack Instructions: Constipation (ED) Forms: General Discharge Instructions - POA Present On Arrival: None - Clinical Impression Clinical Impression: Constipation, Urinary retention - Scribe Statement The provider has reviewed the documentation as recorded by the Scribe Antonia Terry Provider Attestation: All medical record entries made by the Scribe were at my direction and personally dictated by me. I have reviewed the chart and agree that the record accurately reflects my personal performance of the history, physical exam, medical decision making, and the department course for this patient. I have also personally directed, reviewed, and agree with the discharge instructions and disposition.
[2016-12-27] MEDS ORDERED: Peg-Electrolyte Oral Soln 4L (Golytely) PO ONE (17:00)
--- NOTE | 2016-12-27 17:55 | RAD ---
HISTORY: abdominal pain COMPARISON: None. FINDINGS: BOWEL: Moderate constipation. Nonobstructive bowel gas pattern. No definite free air; please note entirety of the right hemidiaphragm excluded from view. BONES: Osseous demineralization. Degenerative changes. Please note sclerotic lesions demonstrated on prior CT are inadequately assessed on this study. OTHER FINDINGS: None. IMPRESSION: Moderate constipation. Please note sclerotic lesions demonstrated on prior CT are inadequately assessed on this study.
[2016-12-27 18:41] VITALS: PULSE 78; RESP 16; TEMP 97.4; O2SAT 97
[2016-12-27 18:58] VITALS: BP 154/86
== END 2016-12-27 19:14 | disposition home or self-care (01) ==
LOC: C.ER 13:27
DX: K59.00 Constipation, unspecified (principal); N40.1 Benign prostatic hyperplasia with lower urinary tract symptoms; R33.8 Other retention of urine

== ENCOUNTER 2017-04-29 07:46 | Day surgery (SDC) | payer MEDICARE, MEDICAID ==
[2017-04-29 08:47] VITALS: O2SAT 100
[2017-04-29] MEDS ORDERED: Lactated Ringer's 500 ML IV ONE (09:01)
[2017-04-29] MEDS ORDERED: Propofol 10 mg/ml Inj (20 ML) ONE (09:03)
[2017-04-29] MEDS ORDERED: Midazolam 2 MG/2 ML VIAL ONE (09:03)
--- NOTE | 2017-04-29 09:14 | CP.SDSHP ---
Same Day Surgery H & P - History Proposed Procedure: egd Pre-Op Diagnosis: epigastric pain. heartburn. dysphagia - Previous Medical/Surgical History Cardiac: Hypertension, Other (hyperlipidemia, ) Endocrine/Metabolic: Thyroid Disease Neuro: TIA/CVA Misc: Other (BPH, colon polyps, ) - Allergies Allergies: Allergies aspirin Allergy (Mild, Verified 04/29/17 08:20) ITCHING itchy as per patient - Physical Exam Vital Signs: Vital Signs 04/29/17 08:38 Temperature 96.9 F L Pulse Rate 74 Respiratory 20 Rate Blood Pressure 133/85 O2 Sat by Pulse 100 Oximetry Mental Status: Alert & Oriented x3 Neuro: WNL Heart: WNL Lungs: WNL GI: WNL - Impression Impression: epigastric pain. heartburn. dysphagia Pt. Evaluated Today:Candidate for Anesthesia & Procedure: Yes - Date & Time Date: 04/29/17 Time: 09:14 Short Stay Discharge - Short Stay Discharge Admitting Diagnosis/Reason for Visit: EPIGASTRIC PAIN, DYSPHAGIA UNSPEC Disposition: HOME/ ROUTINE
[2017-04-29] MEDS ORDERED: Pantoprazole 40 mg EC Tab PO STA (09:15)
[2017-04-29] MEDS ORDERED: Etomidate 20 mg/10ml Inj IV ONE (09:16)
[2017-04-29 09:41] VITALS: TEMP 98.2
[2017-04-29 10:06] VITALS: RESP 12
[2017-04-29 11:00] VITALS: BP 137/83; PULSE 69
== END 2017-04-29 10:55 | disposition home or self-care (01) ==
LOC: C.ENDO 07:46
PROVIDERS: ATTEND Internal Medicine Gastroenterology
DX: R10.13 Epigastric pain (principal); R13.10 Dysphagia, unspecified; K31.9 Disease of stomach and duodenum, unspecified; K21.9 Gastro-esophageal reflux disease without esophagitis; E78.5 Hyperlipidemia, unspecified; I10 Essential (primary) hypertension
CPT/HCPCS: 43239; 88104; 88305; J2001; J2250; J2704; J3010; J7120

== ENCOUNTER 2019-01-01 23:26 | Inpatient (IN) | payer MEDICARE, MEDICAID ==
[2019-01-01 23:26] VITALS: PULSE 80; BMI 26.4
[2019-01-02] MEDS ORDERED: Sodium Chloride 0.9% 500 ML IV ONE ×2 (00:14→00:22)
[2019-01-02] MEDS: Pantoprazole 80 MG in Sodium Chloride 0.9% 100 ML IVPB SCH ×3 (00:49→20:30)
[2019-01-02 00:51] LABS: EOS # 0.1 K/uL (0.0-0.7); EOS % 1.9 % (0.0-4.0); HEMOGLOBIN 9.1 g/dL (12.0-18.0); LYMPH # 1.2 K/uL (1.0-4.3); LYMPH % 26.4 % (20.0-40.0); MEAN CELL VOLUME 90.9 fL (80.0-94.0); MEAN CORPUSCULAR HEMOGLOBIN 30.1 pg (27.0-31.0); MEAN CORPUSCULAR HGB CONC 33.1 g/dL (33.0-37.0); MEAN PLATELET VOLUME 9.4 fL (7.2-11.7); MONO # 0.3 K/uL (0.0-0.8); NEUT # 2.8 K/uL (1.8-7.0); NEUT % 62.7 % (50.0-75.0); RBC 3.02 Mil/uL (4.40-5.90); RED CELL DISTRIBUTION WIDTH 14.6 % (11.5-14.5); WHITE BLOOD COUNT 4.4 K/uL (4.8-10.8)
[2019-01-02 00:53] LABS: INR 1.7; PARTIAL THROMBOPLASTIN TIME 40.9 SECONDS (21-34); PROTHROMBIN TIME 18.7 SECONDS (9.7-12.2)
[2019-01-02 01:03] LABS: ALBUMIN 4.2 g/dL (3.5-5.0); CALCIUM 8.7 mg/dl (8.6-10.4)
[2019-01-02 01:12] LABS: CK-MB 1.97 ng/mL (0.0-3.38)
--- NOTE | 2019-01-02 01:47 | C.PDOC ---
History Of Present Illness 78 year old male with PMHx of CVA is brought to the ED by family for evaluation of dark blood in the stool that started today. Patient is aphasic s/p CVA. Patient denies any pain at this time. As per family patient c/o LLQ abdominal pain, patient has been taking Eliquis for the past 2 years. Family denies prior GI bleeds. Time Seen by Provider: 01/02/19 00:12 Chief Complaint (Nursing): GI Problem History Per: Family History/Exam Limitations: clinical condition Onset/Duration Of Symptoms: Days Current Symptoms Are (Timing): Still Present Number Of Bleeding Episodes: One Quality Of Discomfort: Unable To Describe Associated Symptoms: Rectal Bleeding Recent travel outside of the [place]: No Additional History Per: Family Past Medical History Reviewed: Historical Data, Nursing Documentation, Vital Signs Vital Signs: Last Vital Signs Temp 97.6 F 01/01/19 23:38 Pulse 78 01/02/19 00:31 Resp 23 01/02/19 00:31 BP 137/75 01/02/19 00:31 Pulse Ox 100 01/02/19 00:31 Primary Care Provider: Samia Elizabeth - Medical History PMH: Anemia, Arthritis, Atrial Fibrillation, CVA, Diabetes, Gastritis, HTN, Hypercholesterolemia, Hyperthyroidism Denies: Chronic Kidney Disease Surgical History: No Surg Hx - [facility] Procedures EXCISION OF ESOPHAGUS, ENDO, DIAGN (08/11/16) EXCISION OF MIDDLE ESOPHAGUS, ENDO, DIAGN (11/06/15) EXCISION OF STOMACH, ENDO, DIAGN (11/06/15) EXCISION OF UPPER ESOPHAGUS, ENDO, DIAGN (11/06/15) OTHER ENDOSCOPY OF SM INTEST (12/14/14) Family History: States: Unknown Family Hx - Social History Hx Tobacco Use: No Hx Alcohol Use: No Hx Substance Use: No - Immunization History Hx Tetanus Toxoid Vaccination: No Hx Influenza Vaccination: Yes (2016) Hx Pneumococcal Vaccination: No Review Of Systems Review Of Systems: ROS cannot be obtained secondary to pt's inabilty to answer questions. Physical Exam - Physical Exam Appears: Non-toxic, Chronically Ill Skin: Normal Color, Warm, Dry Head: Atraumatic, Normacephalic Eye(s): bilateral: Normal Inspection, PERRL, EOMI Neck: Normal ROM, Supple Chest: Symmetrical Cardiovascular: Rhythm Regular Respiratory: Normal Breath Sounds, No Rales, No Rhonchi, No Wheezing Gastrointestinal/Abdominal: Soft, Tenderness (LLQ ), No Guarding, No Rebound Back: No CVA Tenderness Extremity: Normal ROM Neurological/Psych: Oriented x3, Other (aphasic s/p CVA) Gait: Unable To Assess ED Course And Treatment - Laboratory Results Result Diagrams: 01/02/19 00:42 01/02/19 00:42 Lab Results: PT 18.7 SECONDS (9.7-12.2) H 01/02/19 00:42 INR 1.7 01/02/19 00:42 APTT 40.9 SECONDS (21-34) H 01/02/19 00:42 Total Bilirubin 0.4 mg/dL (0.2-1.3) 01/02/19 00:42 AST 20 U/L (17-59) 01/02/19 00:42 ALT 16 U/L (21-72) L D 01/02/19 00:42 Alkaline Phosphatase 57 U/L (38-126) 01/02/19 00:42 Total Protein 6.4 g/dL (6.3-8.3) 01/02/19 00:42 Albumin 4.2 g/dL (3.5-5.0) 01/02/19 00:42 Globulin 2.2 gm/dL (2.2-3.9) 01/02/19 00:42 Albumin/Globulin Ratio 2.0 (1.0-2.1) 01/02/19 00:42 ECG: Interpreted By Me, Viewed By Me ECG Rhythm: Atrial Fibrillation ECG Interpretation: No Acute Changes Rate From EC (BPM) O2 Sat by Pulse Oximetry: 100 (ON RA) Pulse Ox Interpretation: Normal Progress Note: Plan: - Labs. - EKG. - IV fluids. - Protonix 40 mg IVP Disposition - Disposition Forms: [facility] (Russian) - Scribe Statement The provider has reviewed the documentation as recorded by the Scribe Kel De La Torre All medical record entries made by the Scribe were at my direction and personally dictated by me. I have reviewed the chart and agree that the record a ccurately reflects my personal performance of the history, physical exam, medical decision making, and the department course for this patient. I have also personally directed, reviewed, and agree with the discharge instructions and disposition.
[2019-01-02 08:32] LABS: HEMOGLOBIN 9.3 g/dL (12.0-18.0); MEAN CELL VOLUME 91.1 fL (80.0-94.0); MEAN CORPUSCULAR HEMOGLOBIN 30.9 pg (27.0-31.0); MEAN PLATELET VOLUME 8.9 fL (7.2-11.7); RBC 3.01 Mil/uL (4.40-5.90); RED CELL DISTRIBUTION WIDTH 14.6 % (11.5-14.5); WHITE BLOOD COUNT 4.1 K/uL (4.8-10.8)
--- NOTE | 2019-01-02 09:00 | CP.PCM.CON ---
History of Present Illness - History of Present Illness History of Present Illness: CC: melena HPI: GI consult requested for evaluation of melena. Pt is aphasic and can not provide a history. I obtained history from chart review and personal discussion with his 2 daughters. Pt is on chronic Eliquis for CVA and Afib, and developed melena with small amount of dark blood last night, malodorous, and was brought by family to the ER where he was found to have Hgb 9, and was begun on PPI continuous infusion. CT abdomen was essentially unremarkable. Review of old records reveals EGD by Dr Castellon in 2017 performed for evaluation of dysphagia, and primary finding was Esophageal Candidiasis and mild esophagitis. The patient has since been seeing Dr Can in [facility] [place] [facility] [place] primarily for chronic abdominal pain, and had CT, Colnoscopy, however no findings to explain the chronic abdominal pain. Currently patient is comfortable but does point to LLQ region as area of discomfort. Review of Systems - Review of Systems Systems not reviewed;Unavailable: Other (Aphasic) Past Patient History - Infectious Disease Hx of Infectious Diseases: None - Past Medical History & Family History Past Medical History?: Yes - Past Social History Smoking Status: Never Smoked - CARDIAC Hx Atrial Fibrillation: Yes Hx Hypercholesterolemia: Yes Hx Hypertension: Yes - PULMONARY Hx Respiratory Disorders: No Hx Respiratory Tract Infection: Yes - NEUROLOGICAL HX Cerebrovascular Accident: Yes (11/2016, R sided weakness) - HEENT Hx HEENT Problems: Yes Hx Deafness: Yes (+ hearing loss) Other/Comment: wears glasses - RENAL Hx Chronic Kidney Disease: No - ENDOCRINE/METABOLIC Hx Hyperthyroidism: Yes - HEMATOLOGICAL/ONCOLOGICAL Hx Anemia: Yes - INTEGUMENTARY Hx Dermatological Problems: No - MUSCULOSKELETAL/RHEUMATOLOGICAL Hx Arthritis: Yes Hx Falls: No - GASTROINTESTINAL Hx Gastritis: Yes - GENITOURINARY/GYNECOLOGICAL Hx Genitourinary Disorders: Yes Hx Prostate Problems: Yes - PSYCHIATRIC Hx Substance Use: No - SURGICAL HISTORY Hx Surgeries: Yes Other/Comment: endoscopy done 10/26/14 in [facility] [place] - ANESTHESIA Hx Anesthesia: Yes Hx Anesthesia Reactions: No Hx Malignant Hyperthermia: No Meds Allergies/Adverse Reactions: Allergies Allergy/AdvReac Type Severity Reaction Status Date / Time aspirin Allergy Mild ITCHING Verified 01/01/19 23:45 - Medications Medications: Current Medications Pantoprazole Sodium 80 mg/ (Sodium Chloride) 100 mls @ 10 mls/hr IVPB .Q10H MIQUEL Last Admin: 01/02/19 00:49 Dose: 10 mls/hr Nebivolol (Bystolic) 5 mg PO BID [facility] Physical Exam - Constitutional Appears: Well, No Acute Distress - Head Exam Head Exam: ATRAUMATIC, NORMOCEPHALIC - Eye Exam Eye Exam: Normal appearance. absent: Scleral icterus - ENT Exam ENT Exam: Normal Exam - Neck Exam Neck exam: Positive for: Normal Inspection - Respiratory Exam Respiratory Exam: Clear to Auscultation Bilateral - Cardiovascular Exam Cardiovascular Exam: Irregular Rhythm, Systolic Murmur - GI/Abdominal Exam GI & Abdominal Exam: Soft, Tenderness (Mild LLQ tenderness). absent: Distended, Guarding, Mass, Rebound - Rectal Exam Rectal Exam: Black Stool, NORMAL INSPECTION - Extremities Exam Extremities exam: Positive for: normal inspection - Back Exam Back exam: NORMAL INSPECTION - Neurological Exam Neurological exam: Alert - Psychiatric Exam Psychiatric exam: Normal Mood - Skin Skin Exam: Normal Color Results - Vital Signs Recent Vital Signs: Last Vital Signs Temp 97.4 F L 01/02/19 03:58 Pulse 76 01/02/19 04:40 Resp 20 01/02/19 03:58 BP 160/87 H 01/02/19 03:58 Pulse Ox 98 01/02/19 03:58 - Labs Result Diagrams: 01/02/19 08:29 01/02/19 00:42 Labs: Laboratory Results - last 24 hr 01/02/19 01/02/19 01/02/19 00:42 00:42 00:42 WBC 4.4 L RBC 3.02 L Hgb 9.1 L D Hct 27.5 L MCV 90.9 D MCH 30.1 MCHC 33.1 RDW 14.6 H Plt Count 158 MPV 9.4 Neut % (Auto) 62.7 Lymph % (Auto) 26.4 [place] % (Auto) 8.0 Eos % (Auto) 1.9 Baso % (Auto) 1.0 Neut # (Auto) 2.8 Lymph # (Auto) 1.2 [place] # (Auto) 0.3 Eos # (Auto) 0.1 Baso # (Auto) 0.0 PT 18.7 H INR 1.7 APTT 40.9 H Sodium Potassium Chloride Carbon Dioxide Anion Gap BUN Creatinine Est GFR ( Amer) Est GFR (Non-Af Amer) Random Glucose Calcium Total Bilirubin AST ALT Alkaline Phosphatase Total Creatine Kinase CK-MB (Mass) Total Protein Albumin Globulin Albumin/Globulin Ratio Stool Occult Blood Positive H Blood Type Antibody Screen 01/02/19 01/02/19 01/02/19 00:42 00:42 08:29 WBC 4.1 L RBC 3.01 L Hgb 9.3 L Hct 27.4 L MCV 91.1 MCH 30.9 MCHC 34.0 RDW 14.6 H Plt Count 156 MPV 8.9 Neut % (Auto) Lymph % (Auto) [place] % (Auto) Eos % (Auto) Baso % (Auto) Neut # (Auto) Lymph # (Auto) [place] # (Auto) Eos # (Auto) Baso # (Auto) PT INR APTT Sodium 135 Potassium 3.6 Chloride 102 Carbon Dioxide 21 L Anion Gap 16 BUN 46 H Creatinine 1.5 Est GFR ( Amer) 54 Est GFR (Non-Af Amer) 45 Random Glucose 97 Calcium 8.7 Total Bilirubin 0.4 AST 20 ALT 16 L D Alkaline Phosphatase 57 Total Creatine Kinase 176 H CK-MB (Mass) 1.97 Total Protein 6.4 Albumin 4.2 Globulin 2.2 Albumin/Globulin Ratio 2.0 Stool Occult Blood Blood Type O POSITIVE Antibody Screen Negative Assessment & Plan (1) Gastrointestinal hemorrhage Assessment and Plan: Melena and anemia due to acute blood loss. Suspect Upper GI bleed on Eliquis. Bleed appears to be stabilizing. Rec: NPO, PPI drip, Discontinue Eliquis, monitor Hgb levels, and plan for EGD on Friday AM. Discussed with patient's family. Status: Acute
--- NOTE | 2019-01-02 12:03 | CP.PCM.HP ---
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 patient claims that he has been getting LLQ abd pain since one day prior to admission. He has intermittently complained of abdominal pains in the past and has had prior endoscopies and other tests done by a gastrenterologist from [facility] [place]. He noted passing black stools on the dayp of admission and hence he was brought to the ER where he was found to be anemic with Hgb of 9.0 He claims that he had melena 6x prior to going to the ER. He denies any chest pain or shortness of breath. No dizziness or palpitations. No syncope. He has had history of GI bleeding in the past attributed to the anticoagulants he has been taking and hence it was stopped for a time. he subsequently developed a stroke and hence he was restarted back. He is admitted now for further evaluation and mangement. Present on Admission - Present on Admission Any Indicators Present on Admission: No Review of Systems - Review of Systems All systems: reviewed and no additional remarkable complaints except - EENT Eyes: As Per HPI - Cardiovascular Cardiovascular: Irregular Heart Rhythm, Leg Edema - Respiratory Respiratory: As Per HPI - Gastrointestinal Gastrointestinal: Abdominal Pain, Constipation, Melena - Genitourinary Genitourinary: As Per HPI - Musculoskeletal Musculoskeletal: Myalgias, Neck Pain - Neurological Neurological: Memory Loss, Weakness Additional comments: s/p stroke with R hemiparesis and aphasia - Psychiatric Psychiatric: Anxiety Past Patient History - Infectious Disease Hx of Infectious Diseases: None - Past Medical History & Family History Past Medical History?: Yes - Past Social History Smoking Status: Never Smoked Alcohol: None Drugs: Denies Home Situation {Lives}: With Family Domestic Violence: Negative - CARDIAC Hx Atrial Fibrillation: Yes Hx Hypercholesterolemia: Yes Hx Hypertension: Yes Hx Peripheral Vascular Disease: Yes - PULMONARY Hx Respiratory Disorders: No Hx Respiratory Tract Infection: Yes - NEUROLOGICAL HX Cerebrovascular Accident: Yes (11/2016, R sided weakness) - HEENT Hx HEENT Problems: Yes Hx Deafness: Yes (+ hearing loss) Other/Comment: wears glasses - RENAL Hx Chronic Kidney Disease: No Hx Kidney Stones: Yes - ENDOCRINE/METABOLIC Hx Diabetes Mellitus Type 2: Yes Hx Hyperthyroidism: Yes - HEMATOLOGICAL/ONCOLOGICAL Hx Anemia: Yes - INTEGUMENTARY Hx Dermatological Problems: No - MUSCULOSKELETAL/RHEUMATOLOGICAL Hx Arthritis: Yes Hx Falls: No - GASTROINTESTINAL Hx Gastrointestinal Disorders: Yes Hx Gastritis: Yes - GENITOURINARY/GYNECOLOGICAL Hx Genitourinary Disorders: Yes Hx Prostate Problems: Yes - PSYCHIATRIC Hx Anxiety: Yes Hx Substance Use: No - SURGICAL HISTORY Hx Surgeries: Yes Other/Comment: endoscopy done 10/26/14 in [facility] [place] - ANESTHESIA Hx Anesthesia: Yes Hx Anesthesia Reactions: No Hx Malignant Hyperthermia: No Meds Allergies/Adverse Reactions: Allergies Allergy/AdvReac Type Severity Reaction Status Date / Time aspirin Allergy Mild ITCHING Verified 01/01/19 23:45 Physical Exam - Constitutional Appears: No Acute Distress - Eye Exam Eye Exam: EOMI - ENT Exam ENT Exam: Mucous Membranes Moist, Normal Exam - Neck Exam Neck exam: Positive for: Normal Inspection - Respiratory Exam Respiratory Exam: Clear to Auscultation Bilateral, NORMAL BREATHING PATTERN - Cardiovascular Exam Cardiovascular Exam: Irregular Rhythm, +S1, +S2 - GI/Abdominal Exam GI & Abdominal Exam: Normal Bowel Sounds, Soft - Rectal Exam Rectal Exam: Black Stool - Extremities Exam Extremities exam: Positive for: normal inspection - Back Exam Back exam: NORMAL INSPECTION - Neurological Exam Neurological exam: Alert, Oriented x3 - Psychiatric Exam Psychiatric exam: Anxious - Skin Skin Exam: Dry, Intact, Normal Color, Warm Results - Vital Signs Recent Vital Signs: Last Vital Signs Temp 97.8 F 01/02/19 08:58 Pulse 87 01/02/19 08:58 Resp 20 01/02/19 08:58 BP 148/90 01/02/19 08:58 Pulse Ox 98 01/02/19 08:58 - Labs Result Diagrams: 01/02/19 08:29 01/02/19 00:42 Labs: Laboratory Results - last 24 hr 01/02/19 01/02/19 01/02/19 00:42 00:42 00:42 WBC 4.4 L RBC 3.02 L Hgb 9.1 L D Hct 27.5 L MCV 90.9 D MCH 30.1 MCHC 33.1 RDW 14.6 H Plt Count 158 MPV 9.4 Neut % (Auto) 62.7 Lymph % (Auto) 26.4 [place] % (Auto) 8.0 Eos % (Auto) 1.9 Baso % (Auto) 1.0 Neut # (Auto) 2.8 Lymph # (Auto) 1.2 [place] # (Auto) 0.3 Eos # (Auto) 0.1 Baso # (Auto) 0.0 PT 18.7 H INR 1.7 APTT 40.9 H Sodium Potassium Chloride Carbon Dioxide Anion Gap BUN Creatinine Est GFR ( Amer) Est GFR (Non-Af Amer) Random Glucose Calcium Total Bilirubin AST ALT Alkaline Phosphatase Total Creatine Kinase CK-MB (Mass) Total Protein Albumin Globulin Albumin/Globulin Ratio Stool Occult Blood Positive H Blood Type Antibody Screen 01/02/19 01/02/19 01/02/19 00:42 00:42 08:29 WBC 4.1 L RBC 3.01 L Hgb 9.3 L Hct 27.4 L MCV 91.1 MCH 30.9 MCHC 34.0 RDW 14.6 H Plt Count 156 MPV 8.9 Neut % (Auto) Lymph % (Auto) [place] % (Auto) Eos % (Auto) Baso % (Auto) Neut # (Auto) Lymph # (Auto) [place] # (Auto) Eos # (Auto) Baso # (Auto) PT INR APTT Sodium 135 Potassium 3.6 Chloride 102 Carbon Dioxide 21 L Anion Gap 16 BUN 46 H Creatinine 1.5 Est GFR ( Amer) 54 Est GFR (Non-Af Amer) 45 Random Glucose 97 Calcium 8.7 Total Bilirubin 0.4 AST 20 ALT 16 L D Alkaline Phosphatase 57 Total Creatine Kinase 176 H CK-MB (Mass) 1.97 Total Protein 6.4 Albumin 4.2 Globulin 2.2 Albumin/Globulin Ratio 2.0 Stool Occult Blood Blood Type O POSITIVE Antibody Screen Negative Assessment & Plan (1) Gastrointestinal hemorrhage Assessment and Plan: Probably related to use of anticoagulant fro atrial fib and stroke. R/O PUD and other possible causes. -Eliquis stopped -On Pantoprazole drip -GI consult noted and appreciated -For endoscopy tomorrow Status: Acute Priority: High (2) Atrial fibrillation Assessment and Plan: will stop anticoagulant because of the bleed. Status: Chronic Priority: Medium (3) Hypertension Assessment and Plan: Will resume BP meds Status: Chronic Priority: Medium (4) Type 2 diabetes mellitus Assessment and Plan: Will put on accucheck and monitor blood sugar Status: Chronic Priority: Medium (5) Hyperthyroidism Assessment and Plan: to recheck thyroid function and resume med Status: Chronic Priority: Low (6) CVA (cerebral vascular accident) Assessment and Plan: Patient has R derrell and aphasia. Stable at this time Status: Acute Decision To Admit - Pt Status Changed To: Hospital Disposition Of: Inpatient - Admit Certification Admit to Inpatient:: After my assessment, the patient will require hospitalization for at least two midnights. This is because of the severity of symptoms shown, intensity of services needed, and/or the medical risk in this patient being treated as an outpatient. - InPatient: Physician Admission Certification:: After my assessment, the patient will require hospitalization for at least two midnights. This is because of the severity of symptoms shown, intensity of services needed, and/or the medical risk in this patient being treated as an outpatient. - . Bed Request Type: Telemetry Admitting Physician: Samia Elizabeth
[2019-01-02 13:43] LABS: HEMOGLOBIN 9.7 g/dL (12.0-18.0); MEAN CELL VOLUME 91.2 fL (80.0-94.0); MEAN CORPUSCULAR HGB CONC 32.9 g/dL (33.0-37.0); MEAN PLATELET VOLUME 8.9 fL (7.2-11.7); RBC 3.23 Mil/uL (4.40-5.90); RED CELL DISTRIBUTION WIDTH 14.5 % (11.5-14.5); WHITE BLOOD COUNT 4.5 K/uL (4.8-10.8)
--- NOTE | 2019-01-02 17:56 | RAD ---
Date of service: 01/02/2019 HISTORY: HTN, GI Bleed, A Fib COMPARISON: Comparison made with prior chest radiograph 12/20/2016. TECHNIQUE: Chest PA and lateral views FINDINGS: LUNGS: Central pulmonary vasculature is slightly increased with patchy bibasilar atelectasis. There also appears to be some linear scarring/fibrosis in the right upper lung field. Questionable small left effusion PLEURA: As above. No pneumothorax apparent. CARDIOVASCULAR: Moderate aortic atherosclerotic calcification present. Cardiomegaly. OSSEOUS STRUCTURES: No significant abnormalities. VISUALIZED UPPER ABDOMEN: Normal. OTHER FINDINGS: None. IMPRESSION: Central pulmonary vasculature is slightly increased with patchy bibasilar atelectasis. There also appears to be some linear scarring/fibrosis in the right upper lung field. Left effusion
[2019-01-03 00:38] LABS: HEMOGLOBIN 8.5 g/dL (12.0-18.0); MEAN CELL VOLUME 90.9 fL (80.0-94.0); MEAN CORPUSCULAR HEMOGLOBIN 29.8 pg (27.0-31.0); MEAN CORPUSCULAR HGB CONC 32.8 g/dL (33.0-37.0); MEAN PLATELET VOLUME 8.6 fL (7.2-11.7); RBC 2.86 Mil/uL (4.40-5.90); RED CELL DISTRIBUTION WIDTH 14.3 % (11.5-14.5); WHITE BLOOD COUNT 3.2 K/uL (4.8-10.8)
[2019-01-03] MEDS: Pantoprazole 80 MG in Sodium Chloride 0.9% 100 ML IVPB SCH ×2 (02:34→06:30)
[2019-01-03 08:32] LABS: HEMOGLOBIN 9.4 g/dL (12.0-18.0); MEAN CELL VOLUME 90.2 fL (80.0-94.0); MEAN CORPUSCULAR HEMOGLOBIN 30.2 pg (27.0-31.0); MEAN CORPUSCULAR HGB CONC 33.5 g/dL (33.0-37.0); RBC 3.11 Mil/uL (4.40-5.90); RED CELL DISTRIBUTION WIDTH 14.5 % (11.5-14.5); WHITE BLOOD COUNT 3.2 K/uL (4.8-10.8)
[2019-01-03 08:44] LABS: BLOOD UREA NITROGEN 22 mg/dL (9-20); CALCIUM 8.4 mg/dl (8.6-10.4); GFR NON-AFRICAN AMERICAN > 60
[2019-01-03 08:47] LABS: INR 1.3; PROTHROMBIN TIME 14.7 SECONDS (9.7-12.2)
[2019-01-03 08:57] LABS: FREE T4 1.2 ng/dL (0.78-2.19)
[2019-01-03] MEDS ORDERED: Etomidate 20 mg/10ml Inj IV ONE (10:11)
--- NOTE | 2019-01-03 10:37 | CP.PCM.PN ---
Subjective - Date & Time of Evaluation Date of Evaluation: 01/03/19 Time of Evaluation: 10:35 - Subjective Subjective: EGD- Likely Georgina Esophagitis, otherwise normal These findings do not explain melena/anemia. Therefore Colonoscopy is recommended. Will discuss with patient and his family. If agreeable, will order bowel prep and schedule Colonoscopy. Pt to remain off Eliquis until after Colonoscopy. Objective - Vital Signs/Intake and Output Vital Signs (last 24 hours): Temp Pulse Resp BP Pulse Ox 98.4 F 72 20 155/81 H 96 01/03/19 07:56 01/03/19 08:58 01/03/19 07:56 01/03/19 07:56 01/03/19 07:56 Intake and Output: 01/03/19 01/03/19 06:59 18:59 Intake Total 780 Output Total 500 Balance 280 - Medications Medications: Current Medications Acetaminophen (Tylenol 325mg Tab) 650 mg PO Q6 PRN PRN Reason: Pain Last Admin: 01/02/19 22:05 Dose: 650 mg Duloxetine HCl (Cymbalta) 30 mg PO DAILY [facility] Last Admin: 01/02/19 14:19 Dose: 30 mg Fenofibrate (Tricor) 48 mg PO QPM [facility] Last Admin: 01/02/19 17:53 Dose: 48 mg Pantoprazole Sodium 80 mg/ (Sodium Chloride) 100 mls @ 10 mls/hr IVPB .Q10H [facility] Last Admin: 01/03/19 06:30 Dose: Not Given Methimazole (Tapazole) 5 mg PO DAILY [facility] Nebivolol (Bystolic) 5 mg PO BID [facility] Last Admin: 01/03/19 09:39 Dose: 5 mg Tamsulosin HCl (Flomax) 0.4 mg PO DAILY [facility] - Labs Labs: 01/03/19 08:17 01/03/19 08:17 PT 14.7 SECONDS (9.7-12.2) H 01/03/19 08:17 INR 1.3 01/03/19 08:17 APTT 37.0 SECONDS (21-34) H 01/03/19 08:17 Assessment and Plan (1) Gastrointestinal hemorrhage Status: Acute
[2019-01-03] MEDS: methIMAzole 5 MG TAB PO SCH (12:46)
[2019-01-03 13:39] LABS: HEMOGLOBIN 9.1 g/dL (12.0-18.0); MEAN CELL VOLUME 90.8 fL (80.0-94.0); MEAN CORPUSCULAR HEMOGLOBIN 30.6 pg (27.0-31.0); MEAN CORPUSCULAR HGB CONC 33.7 g/dL (33.0-37.0); MEAN PLATELET VOLUME 8.9 fL (7.2-11.7); RBC 2.99 Mil/uL (4.40-5.90); RED CELL DISTRIBUTION WIDTH 14.4 % (11.5-14.5); WHITE BLOOD COUNT 3.5 K/uL (4.8-10.8)
[2019-01-03] MEDS ORDERED: Bisacodyl 5mg EC Tab PO ONE (17:00)
[2019-01-03] MEDS ORDERED: Peg-Electrolyte Oral Soln 4L (Golytely) PO ONE (18:00)
[2019-01-04] MEDS ORDERED: Peg-Electrolyte Oral Soln 4L (Golytely) PO ONE (06:00)
[2019-01-04] MEDS: methIMAzole 5 MG TAB PO SCH (09:33)
--- NOTE | 2019-01-04 12:24 | CP.PCM.PN ---
Subjective - Date & Time of Evaluation Date of Evaluation: 01/04/19 Time of Evaluation: 11:30 - Subjective Subjective: -patient dysarthric and very difficult to understand;sometimes refuses to follow instructions -Passed large amount of dark brown stools per staff -H/h stable- no further drop noted -GI consult noted and appreciated. Endoscopy findings noted -Patient for colonoscopy today. Bowel prep in progress. Objective - Vital Signs/Intake and Output Vital Signs (last 24 hours): Temp Pulse Resp BP Pulse Ox 97.6 F 79 20 145/83 97 01/04/19 07:30 01/04/19 08:30 01/04/19 07:30 01/04/19 07:30 01/04/19 07:30 Intake and Output: 01/04/19 01/04/19 06:59 18:59 Intake Total 2300 Output Total 600 Balance 1700 - Medications Medications: Current Medications Acetaminophen (Tylenol 325mg Tab) 650 mg PO Q6 PRN PRN Reason: Pain Last Admin: 01/03/19 23:02 Dose: 650 mg Duloxetine HCl (Cymbalta) 30 mg PO DAILY [facility] Last Admin: 01/04/19 09:33 Dose: 30 mg Fenofibrate (Tricor) 48 mg PO QPM [facility] Last Admin: 01/03/19 21:58 Dose: 48 mg Methimazole (Tapazole) 5 mg PO DAILY [facility] Last Admin: 01/04/19 09:33 Dose: 5 mg Nebivolol (Bystolic) 5 mg PO BID [facility] Last Admin: 01/04/19 09:33 Dose: 5 mg Tamsulosin HCl (Flomax) 0.4 mg PO DAILY [facility] Last Admin: 01/04/19 09:33 Dose: 0.4 mg - Labs Labs: 01/03/19 13:36 01/03/19 08:17 PT 14.7 SECONDS (9.7-12.2) H 01/03/19 08:17 INR 1.3 01/03/19 08:17 APTT 37.0 SECONDS (21-34) H 01/03/19 08:17 - Constitutional Appears: No Acute Distress - Head Exam Head Exam: NORMAL INSPECTION - Respiratory Exam Respiratory Exam: Clear to Ausculation Bilateral, NORMAL BREATHING PATTERN - Cardiovascular Exam Cardiovascular Exam: Irregular Rhythm, +S1, +S2 - GI/Abdominal Exam GI & Abdominal Exam: Soft, Normal Bowel Sounds - Extremities Exam Additional comments: varicose veins noted - Neurological Exam Neurological Exam: Alert, Awake, Oriented x3 - Skin Skin Exam: Dry, Normal Color, Warm Assessment and Plan (1) Gastrointestinal hemorrhage Assessment & Plan: H/H remains stable. Passed brown stools today. Upper endoscopy findings noted. esophageal Candidiasis noted. For colonoscopy today Status: Acute (2) Atrial fibrillation Status: Chronic (3) Hypertension Assessment & Plan: controlled Status: Chronic (4) Type 2 diabetes mellitus Assessment & Plan: HgbA1c- 6.1 Status: Chronic (5) Hyperthyroidism Assessment & Plan: thyroid function euthyroid Status: Chronic (6) CVA (cerebral vascular accident) Assessment & Plan: aphasic otherwise stable Status: Chronic
--- NOTE | 2019-01-04 13:31 | CARD ---
APPROVED REPORT Date of service: 01/02/2019 EKG Measurement Heart [id number] <Conclusion> Atrial fibrillation Abnormal ECG
[2019-01-04] MEDS ORDERED: Propofol 10 mg/ml Inj (20 ML) ONE (13:40)
[2019-01-04] MEDS ORDERED: Lactated Ringer's 1,000 ML IV ONE (13:45)
[2019-01-04] MEDS ORDERED: Etomidate 20 mg/10ml Inj IV ONE (13:47)
--- NOTE | 2019-01-04 14:14 | CP.PCM.PN ---
Subjective - Date & Time of Evaluation Date of Evaluation: 01/04/19 Time of Evaluation: 14:13 - Subjective Subjective: Colonoscopy performed today Findings: Essentially normal Colonoscopy. No findings to explain melena May resume Eliquis. Consider outpatient Capsule Endoscopy to evaluate Small Bowel Objective - Vital Signs/Intake and Output Vital Signs (last 24 hours): Temp Pulse Resp BP Pulse Ox 97.6 F 79 20 145/83 97 01/04/19 07:30 01/04/19 08:30 01/04/19 07:30 01/04/19 07:30 01/04/19 07:30 Intake and Output: 01/04/19 01/04/19 06:59 18:59 Intake Total 2300 Output Total 600 Balance 1700 - Medications Medications: Current Medications Acetaminophen (Tylenol 325mg Tab) 650 mg PO Q6 PRN PRN Reason: Pain Last Admin: 01/03/19 23:02 Dose: 650 mg Duloxetine HCl (Cymbalta) 30 mg PO DAILY [facility] Last Admin: 01/04/19 09:33 Dose: 30 mg Fenofibrate (Tricor) 48 mg PO QPM [facility] Last Admin: 01/03/19 21:58 Dose: 48 mg Methimazole (Tapazole) 5 mg PO DAILY [facility] Last Admin: 01/04/19 09:33 Dose: 5 mg Nebivolol (Bystolic) 5 mg PO BID [facility] Last Admin: 01/04/19 09:33 Dose: 5 mg Tamsulosin HCl (Flomax) 0.4 mg PO DAILY [facility] Last Admin: 01/04/19 09:33 Dose: 0.4 mg - Labs Labs: 01/03/19 13:36 01/03/19 08:17 PT 14.7 SECONDS (9.7-12.2) H 01/03/19 08:17 INR 1.3 01/03/19 08:17 APTT 37.0 SECONDS (21-34) H 01/03/19 08:17 Assessment and Plan (1) Gastrointestinal hemorrhage Status: Acute
--- NOTE | 2019-01-04 17:08 | CARD ---
APPROVED REPORT Date of service: 01/04/2019 EXAM: Two-dimensional and M-mode echocardiogram with Doppler and color Doppler. Other Information Quality : GoodRhythm : INDICATION CVA/TIA Atrial Fibrillation RISK FACTORS Hypertension Diabetes 2D DIMENSIONS IVSd1.1 (0.7-1.1cm)LVDd5.1 (3.9-5.9cm) LVOT Diameter2.2 (1.8-2.4cm)PWd1.3 (0.7-1.1cm) LA Bklhsf683 (18-58mL)LVDs3.1 (2.5-4.0cm) FS (%) 38.4 %LVEF (%)61.3 (>50%) LVEF (Peter's)58.15 %IVC0.00 cm M-Mode DIMENSIONS RVDd2.40 (2.1-3.2cm)Left Atrium (MM)5.92 (2.5-4.0cm) IVSd0.77 (0.7-1.1cm)Aortic Root3.56 (2.2-3.7cm) LVDd6.60 (4.0-5.6cm)Aortic Cusp Exc.1.61 (1.5-2.0cm) PWd0.79 (0.7-1.1cm)FS (%) 30 % LVDs4.60 (2.0-3.8cm)TAPSE17.96 cm LVEF (%)56 (>50%) Aortic Valve AoV Peak Hyzzxkqs394.7cm/sAoV VTI51.3cmAO Peak GR.18mmHg LVOT Peak Hslivmeq49.7cm/sLVOT VTI19.16cmAO Mean GR.11mmHg CARL (VMAX)1.18ap5AAN (VTI)1.87gw8PB P 1/2 Wuiy258lo Mitral Valve MV E Sijwrvjs609.5cm/sMV A Yxtboqea99.4cm/sE/A ratio3.9 QFXI236.82 cm/s TDI Lateral E' Peak V9.26cm/sMedial E' Peak V7.58cm/sE/Lateral E'13.3 E/Medial E'16.3 Tricuspid Valve TR Peak Khjzyqms877kh/sTR Peak Gr.91myAcKVDO95ynBa LEFT VENTRICLE The left ventricle is normal size. There is normal left ventricular wall thickness. The left ventricular function is normal. The left ventricular ejection fraction is within the normal range. There is normal LV segmental wall motion. The left ventricular diastolic function is normal. RIGHT VENTRICLE The right ventricle is mildly dilated. ATRIA The left atrium is severely dilated. The right atrium is moderately dilated. AORTIC VALVE There is trace to mild aortic regurgitation. There is mild to moderate valvular aortic stenosis. MITRAL VALVE Mitral regurgitation is moderate. TRICUSPID VALVE There is moderate to severe tricuspid regurgitation. <Conclusion> Normal LV systolic function. Severerly dilated LA. Dilated RA and RV. Moderate MR. Mild to moderate with trace to mild AR. Moderate to severe TR.
[2019-01-04 17:16] VITALS: RESP 20
[2019-01-05] MEDS: methIMAzole 5 MG TAB PO SCH (09:50)
--- NOTE | 2019-01-05 11:51 | CP.PCM.DIS ---
Provider - Provider Date of Admission: 01/02/19 01:32 Attending physician: Samia Elizabeth MD Primary care physician: Anisa Elizabeth Consults: 01/02/19 01:34 Physician Consult Routine Comment: lower gi bleed Consulting Provider: David Henry Consulting Physician: David Henry Reason for Consult: gi Time Spent in preparation of Discharge (in minutes): 45 Diagnosis - Discharge Diagnosis (1) Gastrointestinal hemorrhage Status: Resolved Priority: High Comment: no bleeding site documented. Advised to go for capsule endoscopy to further investigate the cause of the bleeding. (2) Atrial fibrillation Status: Chronic Priority: Medium (3) Hypertension Status: Chronic Priority: Medium (4) Type 2 diabetes mellitus Status: Chronic Priority: Medium Comment: diet-controlled (5) Hyperthyroidism Status: Chronic Priority: Low (6) CVA (cerebral vascular accident) Status: Chronic Priority: Low (7) Esophageal candidiasis Status: Chronic Comment: Will start on Diflucan today and continue treatment outpatient. Hospital Course - Lab Results Lab Results: Most Recent Lab Values WBC 3.5 K/uL (4.8-10.8) L 01/03/19 13:36 RBC 2.99 Mil/uL (4.40-5.90) L 01/03/19 13:36 Hgb 9.1 g/dL (12.0-18.0) L 01/03/19 13:36 Hct 27.2 % (35.0-51.0) L 01/03/19 13:36 MCV 90.8 fL (80.0-94.0) 01/03/19 13:36 MCH 30.6 pg (27.0-31.0) 01/03/19 13:36 MCHC 33.7 g/dL (33.0-37.0) 01/03/19 13:36 RDW 14.4 % (11.5-14.5) 01/03/19 13:36 Plt Count 144 K/uL (130-400) 01/03/19 13:36 MPV 8.9 fL (7.2-11.7) 01/03/19 13:36 Neut % (Auto) 62.7 % (50.0-75.0) 01/02/19 00:42 Lymph % (Auto) 26.4 % (20.0-40.0) 01/02/19 00:42 [place] % (Auto) 8.0 % (0.0-10.0) 01/02/19 00:42 Eos % (Auto) 1.9 % (0.0-4.0) 01/02/19 00:42 Baso % (Auto) 1.0 % (0.0-2.0) 01/02/19 00:42 Neut # (Auto) 2.8 K/uL (1.8-7.0) 01/02/19 00:42 Lymph # (Auto) 1.2 K/uL (1.0-4.3) 01/02/19 00:42 [place] # (Auto) 0.3 K/uL (0.0-0.8) 01/02/19 00:42 Eos # (Auto) 0.1 K/uL (0.0-0.7) 01/02/19 00:42 Baso # (Auto) 0.0 K/uL (0.0-0.2) 01/02/19 00:42 PT 14.7 SECONDS (9.7-12.2) H 01/03/19 08:17 INR 1.3 01/03/19 08:17 APTT 37.0 SECONDS (21-34) H 01/03/19 08:17 Sodium 131 mmol/L (132-148) L 01/03/19 08:17 Potassium 4.1 mmol/L (3.6-5.2) 01/03/19 08:17 Chloride 99 mmol/L (98-107) 01/03/19 08:17 Carbon Dioxide 22 mmol/L (22-30) 01/03/19 08:17 Anion Gap 15 (10-20) 01/03/19 08:17 BUN 22 mg/dL (9-20) H 01/03/19 08:17 Creatinine 1.0 mg/dL (0.8-1.5) 01/03/19 08:17 Est GFR ( Amer) > 60 01/03/19 08:17 Est GFR (Non-Af Amer) > 60 01/03/19 08:17 POC Glucose (mg/dL) 125 mg/dL (65-110) H 01/05/19 06:29 Random Glucose 95 mg/dL (75-110) 01/03/19 08:17 Hemoglobin A1c 6.1 % (4.2-6.5) 01/03/19 08:17 Calcium 8.4 mg/dl (8.6-10.4) L 01/03/19 08:17 Total Bilirubin 0.4 mg/dL (0.2-1.3) 01/02/19 00:42 AST 20 U/L (17-59) 01/02/19 00:42 ALT 16 U/L (21-72) L D 01/02/19 00:42 Alkaline Phosphatase 57 U/L (38-126) 01/02/19 00:42 Total Creatine Kinase 176 U/L (55-170) H 01/02/19 00:42 CK-MB (Mass) 1.97 ng/mL (0.0-3.38) 01/02/19 00:42 Total Protein 6.4 g/dL (6.3-8.3) 01/02/19 00:42 Albumin 4.2 g/dL (3.5-5.0) 01/02/19 00:42 Globulin 2.2 gm/dL (2.2-3.9) 01/02/19 00:42 Albumin/Globulin Ratio 2.0 (1.0-2.1) 01/02/19 00:42 Free T4 1.20 ng/dL (0.78-2.19) 01/03/19 08:17 TSH 3rd Generation 3.73 mIU/L (0.46-4.68) 01/03/19 08:17 Stool Occult Blood Positive (NEGATIVE) H 01/02/19 00:42 Blood Type O POSITIVE 01/02/19 00:42 Antibody Screen Negative 01/02/19 00:42 - Hospital Course Hospital Course: This is an 78 y/o male with history of hypertension, chronic atrial fibrillation, old stroke with expressive aphasia, who was admitted because of melena. He went to the ER and was found to be markedly anemic. His H/H was monitored and was noted to be stable and hence no blood transfusion was given. He was started on IV Protonix and GI consultation was requested. he subsequently underwent upper endoscopy and colonoscopy with no bleeding site seen. He was found to have esophageal candidiasis fro which diflucan was started prior to discharge. As patient was stable with no further active bleeding, he was discharged home. Capsule endoscopy was discussed with patient and daughter and rocael was advised to follow up with the GI specialist to schedule capsule endoscopy outpatient. He will be seen in the office in 1-2 weeks. Discharge Exam - Head Exam Head Exam: NORMAL INSPECTION - Eye Exam Eye Exam: Normal appearance - ENT Exam ENT Exam: Mucous Membranes Moist - Neck Exam Neck exam: Normal Inspection - Respiratory Exam Respiratory Exam: Clear to PA & Lateral, NORMAL BREATHING PATTERN, UNREMARKABLE - Cardiovascular Exam Cardiovascular Exam: Irregular Rhythm, +S1, +S2 - GI/Abdominal Exam GI & Abdominal Exam: Normal Bowel Sounds, Soft, Unremarkable - Extremities Exam Extremities exam: normal inspection - Neurological Exam Neurological exam: Alert, Oriented x3 - Psychiatric Exam Psychiatric exam: Depressed, Normal Affect - Skin Skin Exam: Dry, Intact, Normal Color, Warm Discharge Plan - Follow Up Plan Condition: GOOD Disposition: HOME/ ROUTINE Instructions: Heart Healthy Diet, Gastrointestinal Bleeding (DC), Yeast Infection (DC), Fluconazole, Normocytic Normochromic Anemia (DC) Additional Instructions: Follow up in the office Wed 01/13 Referrals: Samia Elizabeth MD [Staff Provider] - Eliu Anderson MD [Staff Provider] - David Henry MD [Staff Provider] -
[2019-01-05 12:27] LABS: MEAN CELL VOLUME 90.6 fL (80.0-94.0); MEAN CORPUSCULAR HEMOGLOBIN 30.3 pg (27.0-31.0); MEAN CORPUSCULAR HGB CONC 33.5 g/dL (33.0-37.0); MEAN PLATELET VOLUME 8.9 fL (7.2-11.7); RBC 3.3 Mil/uL (4.40-5.90); WHITE BLOOD COUNT 4.3 K/uL (4.8-10.8)
--- NOTE | 2019-01-05 14:08 | CP.PCM.PN ---
Subjective - Date & Time of Evaluation Date of Evaluation: 01/05/19 Time of Evaluation: 14:06 - Subjective Subjective: f/u anemia. Pt was seen earlier. Denies abd pain, fever, chills, SZ, CP, SOB, JONES, cough, hematuria Objective - Vital Signs/Intake and Output Vital Signs (last 24 hours): Temp Pulse Resp BP Pulse Ox 98.5 F 67 20 139/73 95 01/05/19 08:17 01/05/19 08:17 01/05/19 08:17 01/05/19 08:17 01/05/19 08:17 Intake and Output: 01/05/19 01/05/19 06:59 18:59 Intake Total 400 Balance 400 - Medications Medications: Current Medications Acetaminophen (Tylenol 325mg Tab) 650 mg PO Q6 PRN PRN Reason: Pain Last Admin: 01/04/19 23:12 Dose: 650 mg Duloxetine HCl (Cymbalta) 30 mg PO DAILY [facility] Last Admin: 01/05/19 09:50 Dose: 30 mg Fenofibrate (Tricor) 48 mg PO QPM [facility] Last Admin: 01/04/19 20:27 Dose: 48 mg Fluconazole (Diflucan) 100 mg PO DAILY [facility]; Protocol Methimazole (Tapazole) 5 mg PO DAILY [facility] Last Admin: 01/05/19 09:50 Dose: 5 mg Nebivolol (Bystolic) 5 mg PO BID [facility] Last Admin: 01/05/19 09:50 Dose: 5 mg Tamsulosin HCl (Flomax) 0.4 mg PO DAILY [facility] Last Admin: 01/05/19 09:50 Dose: 0.4 mg - Labs Labs: 01/05/19 12:23 01/03/19 08:17 PT 14.7 SECONDS (9.7-12.2) H 01/03/19 08:17 INR 1.3 01/03/19 08:17 APTT 37.0 SECONDS (21-34) H 01/03/19 08:17 - Constitutional Appears: Well - Respiratory Exam Respiratory Exam: Clear to Ausculation Bilateral - Cardiovascular Exam Cardiovascular Exam: RRR - GI/Abdominal Exam GI & Abdominal Exam: Soft, Tenderness, Normal Bowel Sounds - Neurological Exam Neurological Exam: Alert, Awake Assessment and Plan (1) Anemia Assessment & Plan: Hb stable. EGD and colon neg. Rec- follow Hb, consider outpatient camera pill capsule study Status: Acute (2) Pneumonia Status: Acute (3) Atrial fibrillation Status: Chronic (4) CVA (cerebral vascular accident) Status: Chronic (5) Hypertension Status: Chronic (6) Type 2 diabetes mellitus Status: Chronic
[2019-01-05 16:04] VITALS: BP 148/74; PULSE 66; TEMP 97.4; O2SAT 100
== END 2019-01-05 16:57 | disposition home or self-care (01) | DRG 377 ==
LOC: C.ER 23:26 → C.6T 01-02 01:32
PROVIDERS: ADMIT Internal Medicine Cardiovascular Disease; ATTEND Internal Medicine Cardiovascular Disease
PROC: 0DD58ZX Extraction of Esophagus, Via Natural or Artificial Opening Endoscopic, Diagnostic (ICD-10-PCS; 2019-01-04)
PROC: 0DJD8ZZ Inspection of Lower Intestinal Tract, Via Natural or Artificial Opening Endoscopic (ICD-10-PCS; principal; 2019-01-04 13:45)
DX: K92.2 Gastrointestinal hemorrhage, unspecified (principal); J18.9 Pneumonia, unspecified organism; B37.81 Candidal esophagitis; D62 Acute posthemorrhagic anemia; I69.351 Hemiplegia and hemiparesis following cerebral infarction affecting right dominant side; I48.2 Chronic atrial fibrillation; K64.8 Other hemorrhoids; D50.0 Iron deficiency anemia secondary to blood loss (chronic); E05.90 Thyrotoxicosis, unspecified without thyrotoxic crisis or storm; E11.51 Type 2 diabetes mellitus with diabetic peripheral angiopathy without gangrene; I10 Essential (primary) hypertension; E78.00 Pure hypercholesterolemia, unspecified; H91.90 Unspecified hearing loss, unspecified ear; I69.320 Aphasia following cerebral infarction; Z79.01 Long term (current) use of anticoagulants; Z85.01 Personal history of malignant neoplasm of esophagus; Z87.442 Personal history of urinary calculi